=== PATIENT | female | born 1955 | race Asian ===

== ENCOUNTER 2018-03-09 23:21 | Emergency (ER) | payer SELFPAY ==
[~2018-03-09] VITALS: Ht 162.6 cm; Wt 61.7 kg
[2018-03-10] MEDS ORDERED: IV NORMAL SALINE 500ML BAG 500 ML IV ONE (00:45)
--- NOTE | 2018-03-10 00:49 | PHYS DOC ---
Past Medical History Past Medical History: Anxiety, Other Additional Past Medical Histor: VERTIGO, Past Surgical History: Hysterectomy, Other Additional Past Surgical Histo: HEMORRHOID Alcohol Use: None Drug Use: None Adult General Chief Complaint Chief Complaint: DIZZY/LIGHT HEADED HPI HPI Patient is a 62 year old female who presents with dizziness/vertigo. The patient has been diagnosed with vertigo for an extended period of time. She is frequently followed by her primary care physician for this complaint. She does take meclizine. Normally, the family states that meclizine does improve her symptoms but today she had more significant symptoms compared to normal and her meclizine did not make a difference. Because of this, they brought her to the emergency department. She complains of worsening symptoms with position changes. She does not have any headache. She has no chest pain, palpitations, shortness of breath. The patient did have a CT scan within the last 2 weeks of the head and neck which did reveal sinus disease but no additional acute findings. The patient is currently being treated with a Medrol Dosepak and some inhaled nasal steroids. She does not have a history of heart failure or any other cardiovascular diagnoses. Denies headache or focal neurologic complaints this evening. Review of Systems Review of Systems Constitutional: Denies fever or chills Eyes: Denies change in visual acuity HENT: Denies nasal congestion Respiratory: Denies cough or shortness of breath Cardiovascular: No additional information not addressed in HPI GI: Denies abdominal pain, nausea, vomiting Musculoskeletal: Denies back pain or joint pain Integument: Denies rash or skin lesions Neurologic: Denies headache, focal weakness Endocrine: Denies polyuria or polydipsia All other systems were reviewed and found to be within normal limits, except as documented in this note. Current Medications Current Medications Current Medications Medications (Trade) Dose Ordered Sig/Kayla Start Time Stop Time Status Last Admin Dose Admin Prochlorperazine Edisylate (Compazine) 10 mg 1X ONCE 03/10/18 01:00 03/10/18 01:01 DC 03/10/18 01:00 10 MG Sodium Chloride 1,000 ml @ 1,000 mls/hr 1X ONCE 03/10/18 02:30 03/10/18 03:29 DC 03/10/18 02:30 1,000 MLS/HR Allergies Allergies Allergies Coded Allergies Type Severity Reaction Last Updated Verified No Known Drug Allergies 03/10/18 No Physical Exam Physical Exam Constitutional: Well developed, well nourished, no acute distress, non-toxic appearance. HENT: Normocephalic, atraumatic, bilateral external ears normal, oropharynx moist, TM's normal Eyes: PERRLA, EOMI, conjunctiva normal Neck: Normal range of motion, no tenderness, supple, no JVD, no bruits Cardiovascular:Heart rate regular rhythm, no murmur Lungs & Thorax: Bilateral breath sounds clear to auscultation Abdomen: Bowel sounds normal, soft, no tenderness Skin: Warm, dry, no erythema, no rash Back: No tenderness, no CVA tenderness Extremities: No tenderness, no cyanosis, no clubbing, ROM intact, no edema Neurologic: Alert and oriented X 3, normal motor function, normal sensory function, no focal deficits noted, + some horizontal nice diagnosed with extraocular movements of eyes to the left that does fatigue within a few seconds. This does not worsen her vertigo symptoms. She does not have vertigo symptoms while lying on the bed. Psychologic: Affect normal, although there is a language barrier Current Patient Data Vital Signs Vital Signs Date Time Temp Pulse Resp B/P (MAP) Pulse Ox O2 Delivery O2 Flow Rate FiO2 03/10/18 03:04 98 16 98 03/10/18 00:00 98.1 180/83 (115) Room Air 98.1 Lab Values Laboratory Tests Test 03/10/18 01:10 03/10/18 01:55 White Blood Count 9.6 x10^3/uL (4.0-11.0) Red Blood Count 4.38 x10^6/uL (3.50-5.40) Hemoglobin 12.4 g/dL (12.0-15.5) Hematocrit 36.5 % (36.0-47.0) Mean Corpuscular Volume 83 fL (79-100) Mean Corpuscular Hemoglobin 28 pg (25-35) Mean Corpuscular Hemoglobin Concent 34 g/dL (31-37) Red Cell Distribution Width 13.5 % (11.5-14.5) Platelet Count 298 x10^3/uL (140-400) Neutrophils (%) (Auto) 85 % (31-73) H Lymphocytes (%) (Auto) 10 % (24-48) L Monocytes (%) (Auto) 5 % (0-9) Eosinophils (%) (Auto) 0 % (0-3) Basophils (%) (Auto) 0 % (0-3) Neutrophils # (Auto) 8.2 x10^3uL (1.8-7.7) H Lymphocytes # (Auto) 0.9 x10^3/uL (1.0-4.8) L Monocytes # (Auto) 0.5 x10^3/uL (0.0-1.1) Eosinophils # (Auto) 0.0 x10^3/uL (0.0-0.7) Basophils # (Auto) 0.0 x10^3/uL (0.0-0.2) Sodium Level 139 mmol/L (136-145) Potassium Level 4.7 mmol/L (3.5-5.1) Chloride Level 101 mmol/L (98-107) Carbon Dioxide Level 29 mmol/L (21-32) Anion Gap 9 (6-14) Blood Urea Nitrogen 12 mg/dL (7-20) Creatinine 0.7 mg/dL (0.6-1.0) Estimated GFR (Cockcroft-Gault) 84.2 Glucose Level 138 mg/dL (70-99) H Calcium Level 9.6 mg/dL (8.5-10.1) Troponin I Quantitative < 0.017 ng/mL (0.000-0.055) Urine Collection Type Unknown Urine Color Yellow Urine Clarity Clear Urine pH 5.5 Urine Specific [place] 1.010 Urine Protein Negative mg/dL (NEG-TRACE) Urine Glucose (UA) Negative mg/dL (NEG) Urine Ketones (Stick) Negative mg/dL (NEG) Urine Blood Negative (NEG) Urine Nitrite Negative (NEG) Urine Bilirubin Negative (NEG) Urine Urobilinogen Dipstick 0.2 mg/dL (0.2 mg/dL) Urine Leukocyte Esterase Negative (NEG) Urine RBC Occ /HPF (0-2) Urine WBC 1-4 /HPF (0-4) Urine Squamous Epithelial Cells Few /LPF Urine Bacteria Few /HPF (0-FEW) Urine Mucus Slight /LPF Laboratory Tests 03/10/18 01:10 Laboratory Tests 03/10/18 01:10 EKG EKG No STEMI Interpretation Time: 01:35 Radiology/Procedures Radiology/Procedures [] Course & Med Decision Making Course & Med Decision Making Pertinent Labs and Imaging studies reviewed. (See chart for details) 00:45: Patient is seen and examined. She has a normal neurologic exam. She does not have symptoms while she is lying on the bed. We'll give some gentle IV fluids. We'll check basic labs. Will give Compazine to see if we can improve her symptoms. She does have some nausea but does not complain of any vomiting. Patient was evaluated in the ER for vertigo. She had a CT scan done in the last week which was normal except for sinus disease. In the ER, she was given a dose of Compazine and some Tylenol. Her symptoms were completely relieved. Her neurologic exam was normal. She had basic labs, troponin, EKG which were also normal. Patient has close follow-up already scheduled with her primary care doctor. She is discharged to home and advised to come back to the ER for any new or worsening concerns. Dragon Disclaimer Dragon Disclaimer This electronic medical record was generated, in whole or in part, using a voice recognition dictation system. Departure Departure Referrals: DERREK BARRIOS MD (PCP) DIONTE MIMS DO Mar 10, 2018 00:49
[2018-03-10] MEDS ORDERED: PROCHLORPERAZINE 10 MG/2 ML VIAL. IV ONE (01:00)
[2018-03-10 01:24] LABS: BASO % 0 % (0-3); EOS % 0 % (0-3); HEMATOCRIT 36.5 % (36.0-47.0); HEMOGLOBIN 12.4 g/dL (12.0-15.5); LYMPH # 0.9 x10^3/uL (1.0-4.8); LYMPH % 10 % (24-48); MEAN CORPUSCULAR HEMOGLOBIN 28 pg (25-35); MEAN CORPUSCULAR HGB CONC 34 g/dL (31-37); MEAN CORPUSCULAR VOLUME 83 fL (79-100); MONO # 0.5 x10^3/uL (0.0-1.1); MONO % 5 % (0-9); NEUT # 8.2 x10^3uL (1.8-7.7); NEUT % 85 % (31-73); PLATELET COUNT 298 x10^3/uL (140-400); RED BLOOD COUNT 4.38 x10^6/uL (3.50-5.40); RED CELL DISTRIBUTION WIDTH 13.5 % (11.5-14.5); WHITE BLOOD COUNT 9.6 x10^3/uL (4.0-11.0)
[2018-03-10 01:31] LABS: CALCIUM 9.6 mg/dL (8.5-10.1); CREATININE 0.7 mg/dL (0.6-1.0); GFR 84.2; POTASSIUM 4.7 mmol/L (3.5-5.1)
[2018-03-10 02:02] LABS: BILIRUBIN,URINE NEGATIVE (NEG); CLARITY,URINE CLEAR; COLOR,URINE YELLOW; NITRITE,URINE NEGATIVE (NEG); PH,URINE 5.5; PROTEIN,URINE NEGATIVE (NEG-TRACE); UROBILINOGEN,URINE 0.2 mg/dL (0.2 mg/dL)
[2018-03-10 02:06] LABS: BACTERIA,URINE FEW /HPF (0-FEW); RBC,URINE OCC /HPF (0-2); SQUAMOUS EPITHELIAL CELL,UR FEW /LPF
--- NOTE | 2018-03-10 02:16 | EKG ---
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
[2018-03-10] MEDS ORDERED: IV NORMAL SALINE 1000ML BAG 1,000 ML IV ONE (02:30)
[2018-03-10 03:04] VITALS: BP 140/65
== END 2018-03-10 03:15 | disposition home or self-care (01) ==
LOC: ER 23:21
DX: R42 Dizziness and giddiness (principal); R11.0 Nausea; F41.9 Anxiety disorder, unspecified; Z90.710 Acquired absence of both cervix and uterus
CPT/HCPCS: 36415; 80048; 81001; 84484; 85025; 93005; 96374; 99285; J0780; J7030; J7040